=== PATIENT | female | born 1985 | race Caucasian/White ===

== ENCOUNTER 2023-06-28 16:50 | Emergency (ER) | payer MEDICAID ==
[~2023-06-28] VITALS: Ht 152.4 cm; Wt 57.2 kg
[2023-06-28 17:12] VITALS: BP 196/157; PULSE 93; RESP 16; TEMP 98.2; O2SAT 99
[2023-06-28 17:42] LABS: BASOPHILS % 0.5 % (0.0-2.0); HEMOGLOBIN. 13.8 g/dL (12.0-16.0); LYMPHOCYTES % 27.4 % (20.0-50.0); MEAN CORPUSCULAR HGB CONC 33.7 g/dL (31.0-37.0); MEAN CORPUSCULAR VOLUME 92.1 fL (81.0-99.0); MEAN PLATELET VOLUME 10.4 fl (7.4-10.4); NEUTROPHILS % 65.1 % (40.0-76.0); PLATELET 218 x1000/uL (130-400); RED BLOOD CELL COUNT 4.46 mill/uL (4.2-5.4); RED CELL DISTRIBUTION WIDTH 13.7 % (11.6-14.6); WHITE BLOOD COUNT 9.2 x1000/uL (4.5-11.0)
[2023-06-28 17:53] LABS: HCG SCREEN NEGATIVE
[2023-06-28 17:58] LABS: CHLORIDE 106 mEq/L (98-107); POTASSIUM 3.4 mEq/L (3.5-5.1); SODIUM 139 mEq/L (136-145)
[2023-06-28 17:59] LABS: CALCIUM 9.7 mg/dL (8.7-10.4); CARBON DIOXIDE 25 mEq/L (21-32)
[2023-06-28 18:04] LABS: CREATININE 0.6 mg/dL (0.6-1.0); GLUCOSE 106 mg/dL (70-105); UREA NITROGEN BLOOD 10 mg/dL (9-23)
[2023-06-28 18:08] LABS: TROPONIN I HIGH SENSITIVITY < 4 ng/L (3.0-34)
[2023-06-28] MEDS: SODIUM CHLORIDE 0.9% 1,000 ML IV ONE (19:07)
== END 2023-06-28 20:11 | disposition home or self-care (01) ==
LOC: ER 16:50
DX: R00.2 Palpitations (principal); Z98.51 Tubal ligation status
CPT/HCPCS: 99285; 96360; 71045; 80048; 84703; 85025; 84484; 36415; 93005; J7030